=== PATIENT | male | born 1985 | race Two or more races ===

== ENCOUNTER 2024-07-29 21:15 | Emergency (ER) | payer OTHER, SELFPAY ==
[2024-07-29] MEDS ORDERED: Dexamethasone 10 MG/ML VIAL ONE (22:10)
[2024-07-29] MEDS ORDERED: Ipratropium/Albuterol 3 ML NEB ONE ×2 (22:11→22:55)
== END 2024-07-29 23:15 | disposition home or self-care (01) ==
LOC: ERS 21:15
DX: J45.901 Unspecified asthma with (acute) exacerbation (principal)
CPT/HCPCS: 71045; 87428; 94640; J1100; J7620